=== PATIENT | male | born 1965 | race Caucasian/White ===

== ENCOUNTER 2022-05-08 13:13 | Outpatient (CLI) | payer MEDICARE, SELFPAY ==
[2022-05-08 15:37] LABS: Anion Gap 9 mmol/L (8-16); Blood Urea Nitrogen 5 mg/dL (9-20); Calcium 8.3 mg/dL (8.4-10.2); Carbon Dioxide 30 mmol/L (22-30); Chloride 99 mmol/L (98-107); Estimated Glomerular Filt Rate > 60; Glucose 144 mg/dL (65-110); Potassium 3.6 mmol/L (3.4-5.0); Sodium 138 mmol/L (137-145)
== END 2022-05-08 13:14 | disposition home or self-care (01) ==
LOC: ANHSURGERY 13:17
PROVIDERS: Anesthesiology; PCP Family Medicine; Visit Provider Surgery
DX: E11.9 Type 2 diabetes mellitus without complications (principal)
CPT/HCPCS: 36415; 80048

== ENCOUNTER 2022-05-10 01:08 | Day surgery (SDC) | payer MEDICARE, SELFPAY ==
[2022-05-03 10:08] VITALS: BMI 27.8
--- NOTE | 2022-05-03 10:15 | PC.NURSE ---
Report to the Outpatient Waiting Room, entrance under the green pavilion located off [facility], at time 9:00 on date 05/10/22. Planned Procedure Time: 11:00. Time changes happen often and if your time is changed the preop area will call you the afternoon before. - You and your visitor will be asked to self-screen and do not enter if you have any COVID symptoms. - Only one visitor is requested with a max of two and NO children visitors are allowed at this time. - The patient visitor may be requested to leave or wait in car when not with patient due to distancing restrictions. - A mask is optional within the hospital. Patients may have clear liquids (water, carbonated beverages, clear teas, apple juice) until 3 hours prior to surgery (8:00) with a maximum of 20 ounces. - No food from midnight until time of surgery Take the following medications with a SIP of water the morning of surgery: AMLODIPINE, ALPRAZOLAM IF NEEDED Medications to discontinue per physician: N/A Date to take last dose: N/A Please no make-up, nail namibian, hairspray, perfume, deodorant, or body powder the day of surgery. No jewelry (including any body piercings) or valuables the day of surgery, leave them at home. Please take a shower or bath the night before, or the morning of, surgery with an antibacterial soap (HIBICLENS). Wear comfortable, loose fitting clothing. - Jewelry must be removed prior to entering the operating room. Rings and piercings that are not removed may be cut off. - The hospital will not accept responsibility for valuables. - Please leave all valuables, including medications, at home the day of surgery. If you are going home after surgery, a licensed local hazmat driver must drive you home. - NO public transportation without another adult if you receive anesthesia. - We recommend that an adult stay with you for 24 hours following discharge. - We also recommend that you do not drive, make important decision, drink alcoholic beverages, or take any drugs that were not prescribed by your health care provider for at least 24 hours after your discharge time. Follow any additional instructions given to you from your surgeon. If you or anyone in your household have experienced Covid symptoms in the past week, please notify your surgeon or the nurse liaison at the phone number below for possible testing. Telephone instructions given to PT - DANNY CREWS and asked if any additional questions and then verbalized understanding. Patient advised to call surgeon office or pre surgery nurse liaison [phone] if any additional questions.
--- NOTE | 2022-05-09 11:54 | PM.SD2 ---
Same Day Admit/Disch: HPI History of Present Illness Chief complaint: Right Ing Hernia Narrative: Eber Rouse is a 56 year old male Who has noticed a bulge in the right groin area since late January of this year. It is occasionally painful. He was seen in the office. The hernia seems to be getting bigger. He was noted to have a right inguinal hernia. He is taken to surgery now for repair. Patient has had multiple abdominal surgeries for hernia repair with mesh and glued Ng infected mesh surgery. [facility] Past Medical History Medical History Anxiety Depression Diabetes GERD (gastroesophageal reflux disease) Hypertension Surgical History Surgical History Abdominal hernia 2007, 2010, 2016 Family History Family History Other Cancer Diabetes mellitus Heart disease Hypertension Social History Social History Smoking packs per day: 1 Smoking cigarettes per day: 20.0 Years smoked: 20 Smoking pack-years: 20.00 Smoking status: Current every day smoker Alcohol intake: never Substance use: never Substance use type: does not use Living arrangements: with family Spiritual care concerns: No Same Day Admit/Disch: Med Pre-admit Medications Home Medications Medication Instructions Recorded Confirmed Type alprazolam 1 mg tablet 1 mg PO TID PRN Anxiety 03/30/22 05/10/22 History amlodipine 5 mg tablet 5 mg PO DAILY 03/30/22 05/10/22 History dextroamphetamine-amphetamine ER 20 mg PO TID 03/30/22 05/10/22 History 20 mg 24hr capsule,extend release famotidine 20 mg tablet 20 mg PO BID 03/30/22 05/10/22 History lisinopril 40 mg tablet 40 mg PO DAILY 03/30/22 05/10/22 History metformin 500 mg tablet 500 mg PO BID 03/30/22 05/10/22 History omeprazole 20 mg capsule,delayed 20 mg PO DAILY 03/30/22 05/10/22 History release ondansetron 4 mg disintegrating 4 mg PO Q8H 03/30/22 05/10/22 History tablet hydrocodone 5 mg-acetaminophen 325 1 - 2 tablet PO Q6H PRN pain #15 05/10/22 Rx mg tablet tabs ketorolac 10 mg tablet 10 mg PO Q6H 4 days #16 tabs 05/10/22 Rx Exam Const: General: comfortable, no acute distress, alert and awake HENMT: Head: normocephalic and atraumatic Mouth: Yes Normal oral and palatal mucosa present Eyes: Conjunctivae: conjunctivae normal Pupils: Equal, round and reactive pupils present EOM: EOMs intact bilaterally Neck: Neck: normal visual inspection, no lymphadenopathy and nontender Resp: Effort & Inspection: normal respiratory effort Auscultation: clear to auscultation bilaterally Cardio: Rate: regular rate Rhythm: regular rhythm Heart sounds: no gallops, no murmurs and no rubs GI: Inspection: non-distended and scar ( Multiple) GI Palp: Yes Soft to palpation, No Tenderness to palpation present (GI), No Hepatomegaly present, No Splenomegaly present and No Hernia present : Male General Exam: Yes hernia ( right inguinal bulge, pulses with cough) Penis: Yes normal penis Scrotum: scrotum normal Testes: Testes normal Skin: Lesions: no lesions Rashes: no rashes Neuro: General: no focal motor deficits and CN's II-XI intact bilaterally Cranial nerves: Yes Equal, round and reactive pupils present, Yes Bilaterally intact EOM present, Yes facial symmetry and Yes Midline tongue present Speech: normal speech Motor exam (neuro): 5/5 motor strength present throughout and Motor abnormalities not present Extrem: General: no clubbing, cyanosis or edema and edema Psych: Affect: normal affect Thought process: Normal thought process present Insight: Good insight present (Psych) DS: Summary Time Spent with Patient Time attestation: Total time spent providing and/or coordinating discharge services: DS: Admitting Diagnosis Discharge Date 05/10/2022 Ad
[2022-05-10 08:57] VITALS: BP 150/87; PULSE 78; RESP 18; TEMP 36; O2SAT 100
[2022-05-10] MEDS: LACTATED RINGERS 1,000 ML 30 ML IV CONT (09:23)
[2022-05-10] MEDS: KETOROLAC 15 MG/ML VIAL (*BKC) IV PUSH (09:24)
[2022-05-10] MEDS: ACETAMINOPHEN 500 MG TABLET 1000 MG PO (09:24)
[2022-05-10 09:32] LABS: Glucose Point of Care 144 mg/dl (65-105)
--- NOTE | 2022-05-10 09:49 | WPDANESEPPF ---
Anes - Initial Pre Proc Eval Procedure: Operation Date: 05/10/22 11:00 Proposed Procedures p Right Inguinal Hernia Repair - Timur Jalloh MD Date/Time: 05/10/22 09:49 Surgeon: Timur Jalloh MD Pre Op Diagnosis: Right Ing Hernia Patient Data Age: 56 Gender: M Height: 1.8 m Weight: 96.2 kg Last Vital Signs Temp 36.0 C L 05/10/22 08:57 Pulse 78 05/10/22 08:57 Resp 18 05/10/22 08:57 BP 150/87 H 05/10/22 08:57 Pulse Ox 100 05/10/22 08:57 O2 Del Method Room Air 05/10/22 08:57 Allergies Allergy/AdvReac Type Severity Reaction Status Date / Time aloe Allergy Mild Hives Verified 05/10/22 09:03 ciprofloxacin Allergy Mild Hives Verified 05/10/22 09:03 SHELLFISH Allergy Mild Unknown Uncoded 05/10/22 09:03 Home Medications Medication Instructions Recorded Confirmed Type alprazolam 1 mg tablet 1 mg PO TID PRN Anxiety 03/30/22 05/10/22 History amlodipine 5 mg tablet 5 mg PO DAILY 03/30/22 05/10/22 History dextroamphetamine-amphetamine ER 20 mg PO TID 03/30/22 05/10/22 History 20 mg 24hr capsule,extend release famotidine 20 mg tablet 20 mg PO BID 03/30/22 05/10/22 History lisinopril 40 mg tablet 40 mg PO DAILY 03/30/22 05/10/22 History metformin 500 mg tablet 500 mg PO BID 03/30/22 05/10/22 History omeprazole 20 mg capsule,delayed 20 mg PO DAILY 03/30/22 05/10/22 History release ondansetron 4 mg disintegrating 4 mg PO Q8H 03/30/22 05/10/22 History tablet Laboratory Tests 05/10/22 09:21 POC Capillary Glucose 144 mg/dl H mg/dl (65-105) Patient hx anesthesia problems: none Family hx anesthesia problems: none Results Review: All pre-operative results and documents have been reviewed as part of the pre-operative evaluation. [facility] Past Medical History Medical History Anxiety Depression Diabetes GERD (gastroesophageal reflux disease) Hypertension Surgical History Surgical History Abdominal hernia 2007, 2010, 2017 Family History Family History Other Cancer Diabetes mellitus Heart disease Hypertension Social History Social History Smoking packs per day: 1 Smoking cigarettes per day: 20.0 Years smoked: 20 Smoking pack-years: 20.00 Smoking status: Current every day smoker Alcohol intake: never Substance use: never Substance use type: does not use Living arrangements: with family Spiritual care concerns: No Anes - Eval Final PreProcedure Day of Procedure 05/10/22 09:49 Patient weight: obese Heart: regular rate and rhythm Lungs: clear to auscultation Airway: Mallampati scale class II and special considerations poor dentition Last oral intake: >/= 8 hours ASA classification: III Emergent: no Anesthetic plan: proceed Anesthesia type and monitoring: general GIVS and standard monitoring Results Review: All pre-operative results and documents have been reviewed as part of the pre-operative evaluation. Informed Consent: The patient's anesthetic plan and its attendant risks and benefits were discussed with the patient/family/POA. Questions were solicited and answers provided to the satisfaction of the patient/family/POA.
--- NOTE | 2022-05-10 10:46 | WPDHPUPDATE1 ---
History and Physical Update Update Date/Time: 05/10/22 10:46 History and Physical has been reviewed, including an updated exam of the patient. There are NO changes in the patient's condition. Risks, benefits, and alternatives have been discussed and questions answered. Patient agrees to proceed with procedure.
[2022-05-10] MEDS: ceFAZolin 2 GM/D5W 50 ML 2 GM/50 ML BAG IVPB (11:14)
[2022-05-10] MEDS: LIDO 1%/EPINEPHRINE/PF 1:200,000 30 ML VIAL XX (11:49)
[2022-05-10 12:50] VITALS: BP 136/81; PULSE 81; RESP 14; TEMP 37.2; O2SAT 96
--- NOTE | 2022-05-10 13:04 | W.PM.PROC2 ---
Procedure Note - Detailed Date of Procedure 05/10/22 Pre-op Diagnosis Right Ing Hernia Post-op Diagnosis Same Procedure Performed Right inguinal hernia repair with PerFix Light plug and patch Surgeon Timur Jalloh MD Hand Hardener Marj Leung [facility] Anesthesia MAC, Local (2% lidocaine with epinephrine) and Other (Xaracoll) Indications Patient has noticed discomfort and a bulge in the right groin. It is worse with activity. He was found on exam to have a right inguinal hernia. He is taken to surgery now for repair. Findings He had a large indirect hernia. Description of Procedure Patient was taken to surgery and sedation was introduced. Prep and drape was carried out. The proposed incision was marked in the right inguinal area. Local was infiltrated into the skin and the subcutaneous. Incision was made deepened through the subcutaneous. Crossing veins were cauterized and divided. We continued our dissection down to the external oblique aponeurosis. The aponeurosis was exposed as was the external ring. We infiltrated more local deep to the aponeurosis in the area of the inguinal canal. The aponeurosis was opened laterally and extended medially through the external ring. The ilioinguinal nerve was left attached to the cord was preserved throughout the surgery. We mobilized the cord medially and then mobilized back to the internal ring. I then dissected in the anteromedial aspect of cord and found a large hernia sac. We dissected the hernia sac free from the cord structures. We dissected the hernia sac back to the internal ring. There was quite a bit of lipomatous tissue in the cord which was dissected free and excised using the cautery. It was also a lot of excess scar tissue and cremasteric fiber that was excised. Once the sac and been dissected back to a high dissection, it was dunked into the retroperitoneum. A large PerFix Light plug was then placed in the defect. The plug was sutured at the edges to the transversalis fascia with interrupted 3-0 Vicryl suture. The defect was partially closed with 3-0 Vicryl suture. I then cut the patch to the appropriate size and placed over the inguinal canal floor. The lateral leaves were passed beyond the cord. I then placed the 1st pieces Xaracoll over the patch. The cord and ilioinguinal nerve were then laid over the Xaracoll. The external oblique aponeurosis was closed with interrupted 3-0 Vicryl suture. The 2nd pieces Xaracoll was placed on the aponeurosis. Siena's fascia was closed with interrupted 3-0 Vicryl suture. The last pieces Xaracoll was placed in the subcutaneous. The skin was loosely approximated with subcuticular interrupted 4-0 Vicryl. Finally the skin was closed with a running 4-0 Monocryl skin suture. The wound was dressed with Exofin surgical adhesive. The patient was awakened and taken to outpatient surgery in good condition. Sponge needle counts were correct x2. Estimated Blood Loss -5 Drains No Packing No Pathology None sent Complications No immediate complications Condition Stable Disposition Same day [facility] Billing Surgery - Charge Forward: Surgery Billing (Repair right inguinal hernia with mesh)
[2022-05-10 13:10] VITALS: BP 146/80; PULSE 80; RESP 14; O2SAT 97
[2022-05-10] MEDS: oxyCODONE HCL (*CRX) 5 MG TAB IR PO (13:26)
[2022-05-10 13:31] LABS: Glucose Point of Care 150 mg/dl (65-105)
[2022-05-10 13:50] VITALS: BP 156/87; PULSE 71; RESP 14
[2022-05-10 14:20] VITALS: BP 154/91; PULSE 71; RESP 14
== END 2022-05-10 14:45 | disposition home or self-care (01) ==
PROVIDERS: PCP Family Medicine; Visit Provider Surgery
PROC: (CPT 49505; principal; 2022-05-10 11:00)
DX: K40.90 Unilateral inguinal hernia, without obstruction or gangrene, not specified as recurrent (principal); E11.9 Type 2 diabetes mellitus without complications; I10 Essential (primary) hypertension; K21.9 Gastro-esophageal reflux disease without esophagitis; F41.9 Anxiety disorder, unspecified; F32.A Depression, unspecified; F17.210 Nicotine dependence, cigarettes, uncomplicated; Z79.84 Long term (current) use of oral hypoglycemic drugs
CPT/HCPCS: 49505; 82948; A9270; C1781; J0690; J1885; J2250; J2270; J2704; J3010; J7120

== ENCOUNTER 2022-06-19 14:49 | Outpatient (CLI) | payer MEDICARE, SELFPAY ==
--- NOTE | ~2022-06-19 | XR_ITS ---
EXAM: XR tibia fibula LT 2V DATE: 06/19/2022 15:20 HISTORY: S89.92XA puncture by stick 2mo ago, area warm/swollen/red . COMPARISON: None available. FINDINGS: Normal mineralization. Cerclage wire, stable, and screw fixation in the proximal left tibi a, without evident complication No fracture or dislocation. No lytic or blastic lesion. Joint spaces and physes are maintained. No erosion or periosteal change. Soft tissues within normal limits. No rad iopaque foreign body. No subcutaneous emphysema. IMPRESSION: No acute osseous finding in the left tibia or fibula. Reviewed, dictated and finalized at location K. TABLE FARM WORKER
== END 2022-06-19 14:50 | disposition home or self-care (01) ==
PROVIDERS: PCP Family Medicine; Visit Provider Surgery
DX: S89.92XA Unspecified injury of left lower leg, initial encounter (principal)
CPT/HCPCS: 73590

== ENCOUNTER 2022-07-12 10:55 | Outpatient (CLI) | payer MEDICARE, SELFPAY ==
--- NOTE | ~2022-07-12 | US_ITS ---
EXAMINATION: US soft tissue LE LT DATE: 07/12/2022 11:49 INDICATION: Left anterior lower leg wound. Initial encounter. TECHNIQUE: Multiple grayscale and Doppler ultrasound images of the left lower limb were obtained. COMPARISON: Left tibia and fibula radiographs 06/19/2022 FINDINGS: Anterior to the tibia, there is a 1.6 x 0.9 cm hypoechoic and anechoic mass extending from the skin to the bone. There is subcutaneous edema in the hardy. IMPRESSION: 1. 1.6 x 0.9 cm hypoechoic and anechoic mass anterior to the tibia extending from the skin to the bon e, consistent with a puncture wound. Reviewed, dictated and finalized at location A. KEEPING TEACHER IMPRESSION: 1. 1.6 x 0.9 cm hypoechoic and anechoic mass anterior to the tibia extending fr om the skin to the bone, consistent with a puncture wound.
== END 2022-07-12 10:56 | disposition home or self-care (01) ==
LOC: ANHIMG 10:58
PROVIDERS: PCP Family Medicine; Visit Provider Surgery
DX: S81.802A Unspecified open wound, left lower leg, initial encounter (principal); R22.42 Localized swelling, mass and lump, left lower limb
CPT/HCPCS: 76882